=== PATIENT | female | born 1960 | race Caucasian/White ===

== ENCOUNTER → 2017-05-26 | Day surgery (SDC) | payer MEDICARE ==
[~2017-05-26] MED LIST: AZELASTINE137 MCG/0.; CHOLESTYRAMINE; FENTANYL CITRATE/PF 100MCG/2 ML INJ ONE; FLUTICASONE INH; GABAPENTIN100 MG PO; LEXAPRO10 MG PO; LIDOCAINE HCL 2% LOCAL INJ 5 ML SDV VIAL INJ ONE; LIDODERM PATCH1 EA; METHOCARBAMOL750 MG PO; METOCLOPRAMIDE10 MG PO; MIDAZOLAM HCL 2 MG/2 ML VIAL ONE; PANTOPRAZOLE SO40 MG PO; PROAIR; PROPOFOL IV EMULSION 10 MG/ML 50 ML VIAL ONE; QUETIAPINE FUM100 MG PO; TEMAZEPAM15 MG PO; ULTRAM 50MG50 MG PO; VITAMIN D; WELLBUTRIN SR100 MG PO; Z.0.DEXILANT60 MG PO; Z.0.GABAPENTIN100 MG PO; Z.0.NORCO 10-325 T1 PO; Z.0.SEROQUEL50 MG PO; Z.0.WELLBUTRIN SR150 PO; Z.0.XANAX1 MG PO
== END | disposition home or self-care (01) ==
LOC: OR 05:21
PROVIDERS: ATTEND Internal Medicine Gastroenterology
DX: C21.0 Malignant neoplasm of anus, unspecified (principal); K58.9 Irritable bowel syndrome, unspecified; K57.30 Diverticulosis of large intestine without perforation or abscess without bleeding; K64.8 Other hemorrhoids; K21.9 Gastro-esophageal reflux disease without esophagitis; J44.9 Chronic obstructive pulmonary disease, unspecified; E66.3 Overweight; F17.210 Nicotine dependence, cigarettes, uncomplicated; Z01.810 Encounter for preprocedural cardiovascular examination; Z68.25 Body mass index [BMI] 25.0-25.9, adult
CPT/HCPCS: 45378; 93005; J2001; J2250

== ENCOUNTER → 2018-05-31 | Outpatient (CLI) | payer MEDICARE ==
[~2018-05-31] MED LIST changes: -FENTANYL CITRATE/PF 100MCG/2 ML INJ ONE; -LIDOCAINE HCL 2% LOCAL INJ 5 ML SDV VIAL INJ ONE; -MIDAZOLAM HCL 2 MG/2 ML VIAL ONE; -PROPOFOL IV EMULSION 10 MG/ML 50 ML VIAL ONE
== END ==
LOC: CARD 05-25 09:00
PROVIDERS: ATTEND Family Medicine
DX: I73.9 Peripheral vascular disease, unspecified (principal)
CPT/HCPCS: 93926

== ENCOUNTER → 2018-07-04 | Outpatient (CLI) | payer MEDICARE ==
[2018-07-04 11:14] LABS: BASOPHILS % 0.7 % (0.0-1.0); EOSINOPHILS # (AUTO) 0.1 (0.0-0.4); EOSINOPHILS % 1.7 % (0.0-6.0); HEMATOCRIT 37.1 % (34.2-44.1); HEMOGLOBIN 12.4 g/dL (12.0-16.0); LYMPHOCYTES # (AUTO) 1.3 (1.0-3.2); LYMPHOCYTES % 21.8 % (18.0-39.1); MEAN CORPUSCULAR HEMOGLOBIN 36.2 pg (28-32); MEAN CORPUSCULAR HGB CONC 33.4 g/dL (31-35); MEAN CORPUSCULAR VOLUME 108.2 fL (81-99); MONOCYTES # (AUTO) 0.5 (0.2-0.8); MONOCYTES % 8.7 % (4.4-11.3); NEUTROPHILS % 66.4 % (38.7-80.0); PLATELET COUNT 254 x10e3/uL (140-360); RED BLOOD COUNT 3.43 x10e6/uL (3.6-5.1); RED CELL DISTRIBUTION WIDTH 14.6 % (11.7-14.4)
[2018-07-04 11:42] LABS: ALANINE AMINOTRANSFERASE 12 IU/L (0-55); ALBUMIN 3.5 g/dL (3.5-5.0); ALKALINE PHOSPHATASE 81 IU/L (40-150); BLOOD UREA NITROGEN 13 mg/dL (7-26); BUN/CREATININE RATIO 20 (6-25); CALCIUM 8.9 mg/dL (8.4-10.2); CARBON DIOXIDE 27 mmol/L (22-29); CHLORIDE 100 mmol/L (98-107); CHOL/HDL RATIO 3.3 (3.0-3.6); CHOLESTEROL 286 MD/DL (0-199); CREATININE, SERUM 0.66 mg/dL (0.57-1.11); EST GLOMERULAR FILTRATION RATE > 60 ML/MIN (60-); GLUCOSE 94 mg/dL (74-118); HDL CHOLESTEROL 88 MG/DL (40-60); LDL CHOLESTEROL 172 MG/DL (60-130); SODIUM 136 mmol/L (136-145); TRIGLYCERIDES 129 MG/DL (0-149)
[2018-07-04 12:03] LABS: THYROID STIMULATING HORMONE 0.103 uIU/mL (0.350-4.940)
== END ==
LOC: CARD 09:47
PROVIDERS: ATTEND Internal Medicine Cardiovascular Disease
DX: I73.9 Peripheral vascular disease, unspecified (principal); J44.9 Chronic obstructive pulmonary disease, unspecified; I70.201 Unspecified atherosclerosis of native arteries of extremities, right leg; R53.1 Weakness
CPT/HCPCS: 36415; 80053; 80061; 84443; 85025; 93925

== ENCOUNTER → 2019-01-25 | Day surgery (SDC) | payer MEDICARE ==
[2019-01-24 13:59] LABS: BASOPHILS # (AUTO) 0.1 (0.0-0.1); EOSINOPHILS # (AUTO) 0.1 (0.0-0.4); EOSINOPHILS % 2.7 % (0.0-6.0); HEMATOCRIT 38.1 % (34.2-44.1); HEMOGLOBIN 12.5 g/dL (12.0-16.0); LYMPHOCYTES # (AUTO) 1.4 (1.0-3.2); LYMPHOCYTES % 27.3 % (18.0-39.1); MEAN CORPUSCULAR HEMOGLOBIN 33.6 pg (28-32); MEAN CORPUSCULAR HGB CONC 32.8 g/dL (31-35); MEAN CORPUSCULAR VOLUME 102.4 fL (81-99); MONOCYTES # (AUTO) 0.5 (0.2-0.8); MONOCYTES % 9.2 % (4.4-11.3); NEUTROPHILS # (AUTO) 3.1 (2.1-6.9); NEUTROPHILS % 59.4 % (38.7-80.0); PLATELET COUNT 280 x10e3/uL (140-360); RED BLOOD COUNT 3.72 x10e6/uL (3.6-5.1); RED CELL DISTRIBUTION WIDTH 13.3 % (11.7-14.4)
[~2019-01-25] MED LIST changes: +ALBUTEROL SULFAT4 MG NEB; +ASPIRIN325 MG PO; +FENTANYL CITRATE/PF 100MCG/2 ML INJ ONE; +LOSARTAN POTASS25 MG PO; +MIDAZOLAM HCL 2 MG/2 ML VIAL ONE; +PLAVIX75 MG PO; +PROPOFOL IV EMULSION 10 MG/ML 50 ML VIAL ONE
--- OUTSIDE RECORDS SUMMARY | 2019-01-25 05:27 | XMS REPORT | Summary of Care ---
Author Author [facility] Organization [facility] Address Unknown Phone Unavailable Care Team Providers Care Slip Box Changer Name Role Phone Jamal Quinonez MD PCP Reason for Visit * Reason Comments Hip Pain * Consult, Test & Treat (Routine) Referred By Contact Referred To Contact Status Reason Specialty Diagnoses / Procedures Jamal Quinonez MD [facility] [address] [address] Turner Horner MD [address] [address] Authorized Diagnoses Unilateral primary osteoarthritis, left hip hip P rocedures OK OFFICE CONSULTATION NEW/ESTAB PATIENT 60 MIN Encounter Details Care Team Description Date Type Department Turner Horner MD [address] [place], [place] [id number] Hip Pain 01/22/2019 Office Visit Department of Orthopedic Surgery [address] [facility]. [address], [place] [address] Allergies Comments Active Allergy Reactions Severity Noted Date Ambien 06/02/2011 Mood change Varenicline Tartrate 03/30/2012 Morphine Sulfate 06/02/2011 Zolpidem Tartrate High 08/14/2012 documented as of this encounter (statuses as of 01/22/2019) Medications End Date Status Medication Sig Dispensed Refills Start Date Active duloxetine (CYMBALTA) 60 Take 60 mg by 0 MG capsule mouth daily. Active hydrocodone-acetaminophen Take 1 Tab by 0 (NORCO) 5-325 MG per mouth every 4 tablet hours as needed. Active FLUTICASONE PROPIONATE Inhale by 0 HFA IN nose. Active minocycline (MINOCIN, Take 1 Cap by 20 Cap 0 DYNACIN) 100 MG capsule mouth two 1 times daily. Active ciprofloxacin (CIPRO) 500 Take 1 Tab by 20 Tab 0 MG tablet mouth two 2 times daily. Active temazepam (RESTORIL) 15 Take 1 Cap by 14 Cap 0 MG capsule mouth nightly 2 as needed for Sleep. Active AZELASTINE & FLUTICASONE by Nasal 0 NA route. Active alprazolam (XANAX) 1 MG Take 1 mg by 0 tablet mouth nightly as needed for Sleep. Active buPROPion (WELLBUTRIN, Take 200 mg 0 ZYBAN) 200 MG SR tablet by mouth two times daily. Active escitalopram (LEXAPRO) 10 Take 10 mg by 0 MG tablet mouth daily. Active methocarbamol (ROBAXIN) Take 750 mg 0 750 MG tablet by mouth four times daily. Active metoclopramide (REGLAN) Take 10 mg by 0 10 MG tablet mouth four times daily. Active pantoprazole (PROTONIX) Take 40 mg by 0 40 MG tablet mouth daily. Active quetiapine (SEROQUEL) 200 Take 200 mg 0 MG tablet by mouth two times daily. Active temazepam (RESTORIL) 15 Take 15 mg by 0 MG capsule mouth nightly as needed for Sleep. Active tramadol (ULTRAM) 50 MG Take 50 mg by 0 tablet mouth every 6 hours as needed for Pain. Active baclofen (LIORESAL) 20 MG TAKE ONE (1) 2 tablet TABLET(S) BY 9 MOUTH TWICE A DAY WITH FOOD OR MILK. 01/22/2019 Discontinued Buprenorphine (BUTRANS) Place onto 0 10 MCG/HR PTWK the skin. 01/22/2019 Discontinued gabapentin (NEURONTIN) Take 100 mg 0 100 MG capsule by mouth 3 times daily. 01/22/2019 Discontinued fluticasone (FLONASE) 50 1 [place] by 0 MCG/ACT nasal spray Each Nostril route daily. documented as of this encounter (statuses as of 01/22/2019) Active Problems Problem Noted Date Sinusitis, chronic 01/11/2013 Impacted cerumen 08/15/2012 Foreign body in nose 12/09/2011 Headache(784.0) 09/22/2011 Chronic frontal sinusitis 07/13/2011 Cellulitis and abscess of unspecified site 06/10/2011 Swelling, mass, or lump in head and neck 06/02/2011 documented as of this encounter (statuses as of 01/22/2019) Social History Date Tobacco Use Types Packs/Day Years Used Current Every Day Smoker 2 Smokeless Tobacco: Never Used Drinks/Week oz/Week Comments Alcohol Use Yes Sex Assigned at Date Recorded Not on file Industry Job Start Date Occupation Not on file Not on file Not on file Travel End Travel History Travel Start No recent travel history available. documented as of this encounter Last Filed Vital Signs Reading Time Taken Comments Vital Sign 133/92 01/22/2019 2:55 PM CDT Blood Pressure 95 01/22/2019 2:55 PM CDT Pulse - - Temperature - - Respiratory Rate - - Oxygen Saturation - - Inhaled Oxygen Concentration 64.4 kg (142 lb) 01/22/2019 2:55 PM CDT Weight 162.6 cm (5' 4") 01/22/2019 2:55 PM CDT Height 24.37 01/22/2019 2:55 PM CDT Body Mass Index documented in this encounter Progress Notes * Turner Horner MD - 01/22/2019 2:40 PM CDT Chief complaint: Left hip pain. History of present illness: The patient is [id number] woman who presents for e valuation of her left hip. She has had pain in her left hip for the past severa l years. She has a history of rectal cancer treated with pelvic radiation in 01 04. She first noticed her pain sometime after that. She localizes her symptoms to the groin and anterior thigh. Her symptoms are worse with walking and weigh tbearing activities. She has severe difficulty and pain with getting to her sameer e socks and toenails. She ambulates with a cane. Her ambulation is limited to less than a few blocks.She has been taking anti-inflammatories and tramadol. She did do some physical therapy without any relief. She has not had any injection s. She feels that her pain is now severe and it keeps her awake at night. She feels that she is ready to proceed with total hip replacement surgery. Past Medical History: Diagnosis Date Mass Migraines Seasonal allergic reaction Stomach disorder Past Surgical History: Procedure Laterality Date HX ANKLE SURGERY HX FACIAL COSMETIC SURGERY HX HYSTERECTOMY HX KNEE SURGERY HX LEG SURGERY HX SINUS SURGERY HX TOTAL KNEE REPLACEMENT Current Outpatient Medications: alprazolam (XANAX) 1 MG tablet, Take 1 mg by mouth nightly as needed for Sl eep., Disp: , Rfl: AZELASTINE & FLUTICASONE NA, by Nasal route., Disp: , Rfl: baclofen (LIORESAL) 20 MG tablet, TAKE ONE (1) TABLET(S) BY MOUTH TWICE A D AY WITH FOOD OR MILK., Disp: , Rfl: 2 buPROPion (WELLBUTRIN, ZYBAN) 200 MG SR tablet, Take 200 mg by mouth two ti mes daily., Disp: , Rfl: ciprofloxacin (CIPRO) 500 MG tablet, Take 1 Tab by mouth two times daily., Disp: 20 Tab, Rfl: 0 duloxetine (CYMBALTA) 60 MG capsule, Take 60 mg by mouth daily., Disp: , Rf l: escitalopram (LEXAPRO) 10 MG tablet, Take 10 mg by mouth daily., Disp: , Rf l: FLUTICASONE PROPIONATE HFA IN, Inhale by nose., Disp: , Rfl: hydrocodone-acetaminophen (NORCO) 5-325 MG per tablet, Take 1 Tab by mouth every 4 hours as needed., Disp: , Rfl: methocarbamol (ROBAXIN) 750 MG tablet, Take 750 mg by mouth four times adamaris y., Disp: , Rfl: metoclopramide (REGLAN) 10 MG tablet, Take 10 mg by mouth four times daily. , Disp: , Rfl: minocycline (MINOCIN, DYNACIN) 100 MG capsule, Take 1 Cap by mouth two time s daily., Disp: 20 Cap, Rfl: 0 pantoprazole (PROTONIX) 40 MG tablet, Take 40 mg by mouth daily., Disp: , R fl: quetiapine (SEROQUEL) 200 MG tablet, Take 200 mg by mouth two times daily., Disp: , Rfl: temazepam (RESTORIL) 15 MG capsule, Take 15 mg by mouth nightly as needed f or Sleep., Disp: , Rfl: temazepam (RESTORIL) 15 MG capsule, Take 1 Cap by mouth nightly as needed f or Sleep., Disp: 14 Cap, Rfl: 0 tramadol (ULTRAM) 50 MG tablet, Take 50 mg by mouth every 6 hours as needed for Pain., Disp: , Rfl: Allergies Allergen Reactions Zolpidem Tartrate Ambien Chantix [Varenicline Tartrate] Mood change Morphine Sulfate Family History Family history unknown: Yes Social History Tobacco Use Smoking status: Current Every Day Smoker Packs/day: 2.00 Smokeless tobacco: Never Used Substance Use Topics Alcohol use: Yes Drug use: No Review of Systems: Positive as described above, review of other 9 systems noncon tributory as related to the patient's chief complaint. Patient denies SOB, ches t pain, palpitations, cough, chills, and fever. Physical examination:BP (!) 133/92 | Pulse 95 | Ht 5' 4" (1.626 m) | Wt 142 l b (64.4 kg) | BMI 24.37 kg/m The patient is a pleasant woman who is alert and oriented 3 in no acute distre ss. She walks with a marked shoulder shifting limp. She has supple pain-free m otion of her lumbosacral spine. She has supple pain-free full range of motion o f her right hip. On the left side she has a 10 flexion contracture with furth er flexion to not quite 90. She is essentially fixed and approximately 20 o f external rotation. Any attempted motion of her hip reproduces her pain. She is neurovascularly intact distally. Straight leg raising is negative. Radiographs: Films of her hip and pelvis were obtained and reviewed and demonstr ate severe degenerative changes in the left hip. She has complete loss of the s uperolateral joint space. She has marked sclerosis in the femoral head. I do n ot see any obvious evidence of AVN of either the femoral head or pelvis. Impression: Severe DJD of the left hip. Recommendations: I had a long discussion today with the patient regarding furthe r treatment options. She has severe degenerative changes in her left hip. She has exhausted conservative measures. At this point she would be a candidate for total hip replacement surgery. We discussed the nature of the procedure, the r isks, benefits, and alternatives. She appeared to understand these many issues and is eager to proceed. She is aware that she will need to obtain preoperative medical clearance. She is on Plavix following aortic stent placement back in [facility]. We will need recommendations regarding management of her Plavix periop eratively. We will plan on getting her scheduled for a left primary total hip a rthroplasty through a direct anterior approach in the near future. All of her q uestions were answered today. documented in this encounter Plan of Treatment Order Schedule Name Type Priority Associated Diagnoses Ordered: 01/22/2019 ORT - XR HIP LEFT 2V OK Charge Routine Left hip pain (CHARGE ONLY) Ordered: 01/22/2019 ORT - XR PELVIS AP OK Charge Routine Left hip pain (CHARGE ONLY) Health Maintenance Due Date Last Done Comments COLON CANCER SCREENIN1958 COLONOSCOPY MAMMOGRAM ANNUAL 1958 MEDICARE AWV 1958 TETANUS SHOT (ADULT) 1973 HEPATITIS C SCREENING 01/24/1976 HIV SCREENING 01/24/1976 CERVICAL CANCER SCREENING 1979 3 YEAR FOLLOW UP FLU VACCINE > 6 MONTHS 01/11/2019 documented as of this encounter Results * XR PELVIS LIMITED (01/22/2019 3:17 PM CDT) Specimen Narrative Performed At For result, please reference physician's note on the corresponding date. * XR HIP LEFT (COMPLETE) (01/22/2019 3:17 PM CDT) Specimen Narrative Performed At For result, please reference physician's note on the corresponding date. documented in this encounter Visit Diagnoses Diagnosis Other secondary osteoarthritis of left hip - Primary Left hip pain Pain in joint, pelvic region and thigh documented in this encounter Insurance Type Payer Benefit Subscriber ID Effective Phone Address Plan / Dates Group Medicare [employer] AAR xxxxxxxxx 2018-P [address] [place] [address] [id number] [place] [address] documented as of this encounter
--- OUTSIDE RECORDS SUMMARY | 2019-01-25 05:27 | XMS REPORT | Summary of Care ---
Author Author FREDI Ramos, JOSUÉ Organization Unknown Address Unknown Phone Unavailable Care Team Providers Care Belly Roller Name Role Phone ARJUN Ramos, LISETH Unavailable Unavailable FREDI Ramos, JOSUÉ Unavailable Unavailable ARIE DONOVAN, EMMA Vargas Unavailable Unavailable FREDI DONOVAN AR, JOSUÉ Unavailable Unavailable Unavailable Unavailable Functional Status Name Dates Details Functional status health issues are not documented Status: Name Dates Details Cognitive status health issues are not documented Status: Problems Name Dates Details Chronic migraine without aura, without mention of intractable migraine without mention of status migrainosus (346.70, G43.709) Status: Active Alcohol abuse (305.00, F10.10) Status: Active Chronic maxillary sinusitis (473.0, J32.0) Status: Active Chronic frontal sinusitis (473.1, J32.1) Status: Active Chronic ethmoidal sinusitis (473.2, J32.2) Status: Active Normal routine physical examination (V70.0, Z00.00) Status: Active Gastrointestinal bleeding (578.9, K92.2) Status: Active Esophageal reflux (530.81, K21.9) Status: Active History of tobacco use (V15.82, Z87.891) Status: Active Left knee pain (719.46, M25.562) Status: Active Other mechanical complication of internal left knee prosthesis, initial encounter (996.47, T84.093A) Status: Active History of knee replacement, total, left (V43.65, Z96.652) Status: Active Other mechanical complication of internal left knee prosthesis (996.47, T84.093A) Status: Active Swelling of left knee joint (719.06, M25.462) Status: Active Instability of internal left knee prosthesis, initial encounter (996.42, T84.023A) Status: Active Primary osteoarthritis of left hip (715.15, M16.12) Status: Active Aftercare following left knee joint replacement surgery (V54.81, Z47.1) Status: Active 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 * Start : 09-Dec-2010 Active Inderal LA 80 MG Oral Capsule Extended Release 24 Hour TAKE CAPSULE DAILY * Quantity: 30 Refills: 5 LISETH DÍAZ M.D. * Start : 09-Dec-2010 Active BuPROPion HCl ER (SR) 150 MG Oral Tablet Extended Release 12 Hour TAKE 1 TABLET TWICE DAILY. * Refills: 0 Active Baclofen 20 MG Oral Tablet TAKE 1 TABLET TWICE DAILY * Refills: 0 Active TraMADol HCl - 50 MG Oral Tablet TAKE 2 TABLET Every morning * Refills: 0 Active Pantoprazole Sodium 40 MG Oral Tablet Delayed Release TAKE 1 TABLET DAILY. * Refills: 0 Active 7 Tablet Bottle ALPRAZolam 1 MG Oral Tablet TAKE 1 TABLET DAILY PRN * Refills: 0 Active QUEtiapine Fumarate 200 MG Oral Tablet TAKE 1 TABLET AT BEDTIME. * Refills: 0 Active Temazepam 15 MG Oral Capsule TAKE 1 CAPSULE AT BEDTIME NEEDED FOR SLEEP. * Refills: 0 Active Escitalopram Oxalate TABS TAKE 1 TABLET BEDTIME * Refills: 0 Active [place] 5-325 MG Oral Tablet TAKE 1 TABLET EVERY 4 TO 6 HOURS NEEDED FOR PAIN. * Quantity: 60 Refills: 0 * Start : 30-Sep-2017 Active Gas-X Extra Strength 125 MG Oral Capsule TAKE 3 CAPSULE DAILY PRN * Refills: 0 Active Allergies and Adverse Reactions Name Dates Details Ambien TABS (Allergy) Status: Active Chantix TABS (Allergy) Status: Active Morphine Derivatives (Allergy) Status: Active Past Medical History Name Dates Details History of biliary colic (V12.79, Z87.19) Status: Resolved History of deep vein thrombophlebitis of lower extremity (V12.52, Z86.72) Status: Resolved History of depression (V11.8, Z86.59) Status: Resolved History of esophageal reflux (V12.79, Z87.19) Status: Resolved History of gastric ulcer (V12.79, Z87.19) Status: Resolved History of gastrointestinal hemorrhage (V12.79, Z87.19) Status: Resolved History of hemorrhoids (V13.89, Z87.19) Status: Resolved History of obesity (V12.29, Z86.39) Status: Resolved History of osteoporosis (V13.59, Z87.39) Status: Resolved History of panic attacks (V11.8, Z86.59) Status: Resolved History of peptic ulcer (V12.71, Z87.11) Status: Resolved History of post traumatic stress disorder (V11.8, Z86.59) Status: Resolved History of staphylococcal infection (V12.09, Z86.19) Status: Resolved Procedures Procedure Dates Details History of Sinus surgery Completed History of Tonsillectomy Completed History of Brain surgery Completed History of Mini rhytidectomy Completed History of Portal vein catheterization Completed History of Venous access port placement Completed History of Ankle fracture repair Completed History of Knee replacement Completed History of Arterial angioplasty of lower extremity Completed Immunization Name Dates Details Immunizations not documented Family History Name Dates Details Family history of History Unobtainable Comments: Family History Status: Active Social History Name Dates Details - Status: Name Dates Details Smoker. current status unknown Vital Signs Date Test Result Details [id number] BP Systolic 171 mm[Hg] Status: Comments: Location: RUE; BP Diastolic 108 mm[Hg] Status: Comments: Location: RUE; Heart Rate 113 /min Status: Results Date Description Value Details [id number] [U] XRAY KNEE 3 VWS LEFT [id number] XR KNEE 3 VWS LEFT Images acquired, not reported on this accession number. Plan of Care Name Dates Details Planned Observations Planned Goals not documented Planned Encounters Appointment; JOSUÉ RAI M.D. On: 19-Jul-2018 13:30 Interventions Provided Labs/Procedures/Imaging* [U] XRAY KNEE 3 VWS LEFT [id number]; Done: 31 May 2018 Plan* Patient Education/Instructions: * Patient Education Provided * Reassurance * Counseling Provided. * Follow Up: * After thorough discussion with patient, she understood her knee does not feel loose and it appears to be all nerve related pain and cosmetic issues. I informed her that we had discussed performing a revision knee and not a plastics procedure. If the position of the soft tissue was improved with the surgical intervention, that would be a plus but not the purpose of the surgery. I recommended she see pain MD for [facility] for assistance with the nerve pain. Instructions Name Dates Details Instructions not documented Encounters Appointment; ÓSCAR SHAVER NP Encounter Diagnosis: Problem not documented On: 23-Mar-2017 11:00 Appointment; JOSUÉ RAI M.D. Encounter Diagnosis: Problem not documented On: 04-May-2017 10:00 Appointment; JOSUÉ RAI M.D. Encounter Diagnosis: Problem not documented On: 05-Jul-2017 9:30 Appointment; JOSUÉ RAI M.D. Encounter Diagnosis: Problem not documented On: 13-Sep-2017 8:00 Appointment; ÓSCAR SHAVER NP Encounter Diagnosis: Problem not documented On: 26-Sep-2017 13:15 Appointment; ÓSCAR SHAVER NP Encounter Diagnosis: Problem not documented On: 24-Oct-2017 13:15 Appointment; ÓSCAR SHAVER NP Encounter Diagnosis: Problem not documented On: 21-Dec-2017 14:00 Appointment; JOSUÉ RAI M.D. Encounter Diagnosis: Problem not documented On: 20-Jan-2018 11:00 Appointment; JOSUÉ RAI M.D. Encounter Diagnosis: Problem not documented On: 31-May-2018 16:30
[2019-01-25 08:30] VITALS: BP 118/80
== END | disposition home or self-care (01) ==
LOC: OR 05:00
PROVIDERS: ATTEND Internal Medicine Gastroenterology
DX: C21.0 Malignant neoplasm of anus, unspecified (principal); D12.3 Benign neoplasm of transverse colon; K29.70 Gastritis, unspecified, without bleeding; K28.9 Gastrojejunal ulcer, unspecified as acute or chronic, without hemorrhage or perforation; K44.9 Diaphragmatic hernia without obstruction or gangrene; K64.8 Other hemorrhoids; Z71.3 Dietary counseling and surveillance; J44.9 Chronic obstructive pulmonary disease, unspecified; I10 Essential (primary) hypertension; F32.9 Major depressive disorder, single episode, unspecified; F41.9 Anxiety disorder, unspecified; Z88.6 Allergy status to analgesic agent; Z88.8 Allergy status to other drugs, medicaments and biological substances; Z01.810 Encounter for preprocedural cardiovascular examination; Z01.812 Encounter for preprocedural laboratory examination; Z79.02 Long term (current) use of antithrombotics/antiplatelets; Z79.82 Long term (current) use of aspirin
CPT/HCPCS: 36415; 43239; 45385; 85025; 88305; 88312; 93005; J2250; J2704; J3010

== ENCOUNTER → 2020-01-25 | Outpatient (CLI) | payer MEDICARE ==
[~2020-01-25] MED LIST changes: -FENTANYL CITRATE/PF 100MCG/2 ML INJ ONE; -MIDAZOLAM HCL 2 MG/2 ML VIAL ONE; -PROPOFOL IV EMULSION 10 MG/ML 50 ML VIAL ONE
== END ==
LOC: RAD 10:05
PROVIDERS: ATTEND Family Medicine
DX: R60.9 Edema, unspecified (principal)
CPT/HCPCS: 93971

== ENCOUNTER → 2021-06-01 | Outpatient (CLI) | payer MEDICARE ==
[~2021-06-01] MED LIST changes: +IOPAMIDOL 370 MG/ML 200 ML INFUS..BTL INJ ONE; +SODIUM CHLORIDE 0.9% 50ML 50 ML ONE
[2021-06-01 17:44] LABS: CREATININE, SERUM 0.78 mg/dL (0.57-1.11)
== END ==
LOC: CT 16:20
PROVIDERS: ATTEND Family Medicine
DX: R91.8 Other nonspecific abnormal finding of lung field (principal); E04.2 Nontoxic multinodular goiter; K76.0 Fatty (change of) liver, not elsewhere classified
CPT/HCPCS: 36415; 71260; 82565; 84520; Q9967